=== PATIENT | male | born 1990 | race Caucasian/White ===

== ENCOUNTER → 2016-11-22 | Outpatient (CLI) | payer OTHER, BC ==
[~2016-11-22] MED LIST: ADAPALENE45 G1 TP; BACTRIM,SEPT1 TABLE1 PO; CATAPRES-TTS 11 EACH TD; CHILDREN'S100 MG/59 PO; ERYTHROMYCIN250 M1 GT; IRON GT; LAMICTAL200 MG GT; LAMICTAL200 MG PO; MIRALAX17 GM GT; MIRALAX17 GM PO; MYCOSTATIN 100,60 ML PO; NYSTATIN15 GM TP; PREVACID SOLUTA30 MG PO; PREVACID30 MG GT; PROBIOTIC ACID1 EAC1 GT; TRANSDERM-SCO1 PATCH TD; TYLENOL REGULA325 MG PO; VALIUM SOLUTI1 MG/ML GT; VIBRAMYCIN25 MG/5 ML GT; VIMPAT10 MG/1 ML GT; XOPENEX1.25 MG/3 IH; ZYRTEC10 M2 GT
== END | disposition home or self-care (01) ==
LOC: RAD 13:12 → EDSTATUS 13:30 → RAD 13:30
PROC: 0DH67UZ Insertion of Feeding Device into Stomach, Via Natural or Artificial Opening (ICD-10-PCS; principal; 2016-11-22)
DX: Z43.1 Encounter for attention to gastrostomy (principal)
CPT/HCPCS: C1766

== ENCOUNTER → 2017-02-22 | Outpatient (CLI) | payer OTHER, BC | END | disposition home or self-care (01) | LOC: EDSTATUS 13:30 → RAD 13:30 | PROC: 0DH67UZ Insertion of Feeding Device into Stomach, Via Natural or Artificial Opening (ICD-10-PCS; principal; 2017-02-22) | DX: G81.91 Hemiplegia, unspecified affecting right dominant side (principal); K94.20 Gastrostomy complication, unspecified | CPT/HCPCS: C1769 ==

== ENCOUNTER → 2017-06-04 | Outpatient (CLI) | payer OTHER, BC ==
[~2017-06-04] VITALS: Ht 185.4 cm; Wt 65.0 kg
== END | disposition home or self-care (01) ==
LOC: RAD 13:15 → EDSTATUS 13:30 → RAD 13:30
PROC: 0DH87UZ Insertion of Feeding Device into Small Intestine, Via Natural or Artificial Opening (ICD-10-PCS; principal; 2017-06-04)
DX: K94.20 Gastrostomy complication, unspecified (principal); G81.91 Hemiplegia, unspecified affecting right dominant side
CPT/HCPCS: C1769

== ENCOUNTER → 2017-08-14 | Outpatient (CLI) | payer OTHER, BC | END | disposition home or self-care (01) | LOC: RAD 14:00 | PROC: 0DHA7DZ Insertion of Intraluminal Device into Jejunum, Via Natural or Artificial Opening (ICD-10-PCS; principal; 2017-08-14) | DX: G82.50 Quadriplegia, unspecified (principal); K94.20 Gastrostomy complication, unspecified | CPT/HCPCS: C1769 ==

== ENCOUNTER → 2017-11-16 | Outpatient (CLI) | payer OTHER, BC | END | disposition home or self-care (01) | LOC: RAD 13:30 | PROC: 0DH87UZ Insertion of Feeding Device into Small Intestine, Via Natural or Artificial Opening (ICD-10-PCS; principal; 2017-11-16) | DX: K94.20 Gastrostomy complication, unspecified (principal) | CPT/HCPCS: C1769 ==

== ENCOUNTER → 2018-02-11 | Outpatient (CLI) | payer OTHER, BC | END | disposition home or self-care (01) | LOC: RAD 14:00 | PROC: 0DHA7DZ Insertion of Intraluminal Device into Jejunum, Via Natural or Artificial Opening (ICD-10-PCS; principal; 2018-02-11) | DX: G82.50 Quadriplegia, unspecified (principal) | CPT/HCPCS: C1769 ==

== ENCOUNTER 2018-03-31 20:48 | Observation (INO) | payer BC, OTHER ==
[~2018-03-31] VITALS: Ht 185.4 cm; Wt 76.0 kg
[2018-03-31 23:00] LABS: HEMATOCRIT 50.3 % (38.0-50.0); HEMOGLOBIN 17.2 G/DL (12.5-16.6); MCH 31.6 PG (29.0-34.0); MCHC 34.2 G/DL (30.0-36.0); MCV 92.3 FL (86-99); PLATELET COUNT 258 K/uL (156-360); RBC DIS.WIDTH-SD 43.6 % (39-53); RED BLOOD COUNT 5.45 M/uL (4.00-5.50); WHITE BLOOD COUNT 13.5 K/uL (4.1-10.2)
[2018-03-31 23:17] LABS: ALBUMIN 4.5 g/dL (3.2-4.8); CHLORIDE 97 mEq/L (99-109); POTASSIUM 4.3 mEq/L (3.7-5.4); SODIUM 137 mEq/L (136-147)
[2018-03-31 23:20] LABS: GLUCOSE 96 mg/dL (70-99); TOTAL PROTEIN 8.1 g/dL (6.4-8.3)
[2018-03-31 23:21] LABS: TOTAL BILIRUBIN 0.7 mg/dL (0.0-1.0)
[2018-03-31 23:23] LABS: ALKALINE PHOSPHATASE 179 IU/L (3-129); CREATININE 0.5 mg/dL (0.6-1.3); GFR ESTIMATE (CALCULATED) > 59 mL/min/ (58.99-99999)
[2018-03-31 23:24] LABS: UREA NITROGEN (BUN) 12 mg/dL (9-23)
[2018-03-31 23:25] LABS: AST (GOT) 30 IU/L (2-34)
[2018-03-31 23:26] LABS: ALT (GPT) 71 IU/L (3-49)
[2018-03-31 23:27] LABS: LIPASE 150 U/L (1.0-51.0)
[2018-04-01] MEDS ORDERED: HEMP OIL GT (01:17)
[2018-04-01] MEDS ORDERED: ZOFRAN4 MG PO (01:18)
[2018-04-01 05:13] VITALS: BP 114/74
[2018-04-01 11:20] VITALS: BP 100/72
[2018-04-01] MEDS ORDERED: MIRALAX17 GM PO (11:51)
[2018-04-01] MEDS ORDERED: MIRALAX17 GM GT (11:52)
[2018-04-01 14:18] LABS: HEMATOCRIT 52.9 % (38.0-50.0); HEMOGLOBIN 17.8 G/DL (12.5-16.6); MCH 31.3 PG (29.0-34.0); MCHC 33.6 G/DL (30.0-36.0); MCV 93.1 FL (86-99); PLATELET COUNT 181 K/uL (156-360); RBC DIS.WIDTH-CV 13.2 % (11.8-14.6); RBC DIS.WIDTH-SD 44.6 % (39-53); RED BLOOD COUNT 5.68 M/uL (4.00-5.50); WHITE BLOOD COUNT 8.4 K/uL (4.1-10.2)
[2018-04-01 15:22] VITALS: BP 107/64
[2018-04-01 15:31] LABS: POTASSIUM ND MEQ/L (3.7-5.4)
[2018-04-01 15:32] LABS: AST (GOT) ND IU/L (2-34)
[2018-04-01 15:49] LABS: ALBUMIN 4.1 G/DL (3.2-4.8); ALKALINE PHOSPHATASE 139 IU/L (3-129); ALT (GPT) 61 IU/L (3-49); CHLORIDE 105 MEQ/L (99-109); CREATININE 0.4 MG/DL (0.6-1.3); GFR ESTIMATE (CALCULATED) > 59 mL/min/ (58.99-99999); GLUCOSE 87 mg/dL (70-99); SODIUM 140 MEQ/L (136-147); TOTAL BILIRUBIN 0.7 MG/DL (0.0-1.0); TOTAL PROTEIN 7.3 G/DL (6.4-8.3); UREA NITROGEN (BUN) 12 mg/dL (9-23)
[2018-04-01 19:00] VITALS: BP 100/72
[2018-04-02 00:41] VITALS: BP 99/57
[2018-04-02 06:00] LABS: CHLORIDE 107 MEQ/L (99-109); CREATININE 0.5 MG/DL (0.6-1.3); GFR ESTIMATE (CALCULATED) > 59 mL/min/ (58.99-99999); POTASSIUM 4.1 MEQ/L (3.7-5.4); SODIUM 140 MEQ/L (136-147); UREA NITROGEN (BUN) 14 mg/dL (9-23)
[2018-04-02 06:02] LABS: GLUCOSE 109 mg/dL (70-99)
[2018-04-02 06:57] LABS: BASOPHIL (%) 0.9 % (0-1); BASOPHIL COUNT 0.1 K/uL (0-0.1); EOSINOPHIL (%) 1.7 % (0-5); EOSINOPHIL COUNT 0.1 K/uL (0-0.3); IMMATURE GRANULOCYTE (%) 0.3 % (0.0-0.7); LYMPHOCYTE (%) 37.7 % (15-42); LYMPHOCYTE COUNT 2.8 K/uL (1.0-2.8); MCH 30.7 PG (29.0-34.0); MCHC 32.7 G/DL (30.0-36.0); MONOCYTE (%) 6.1 % (3-12); MONOCYTE COUNT 0.5 K/uL (0-0.8); NEUTROPHIL (%) 53.3 % (45-76); PLATELET COUNT 176 K/uL (156-360); RBC DIS.WIDTH-CV 13.1 % (11.8-14.6); RBC DIS.WIDTH-SD 45.1 % (39-53); RED BLOOD COUNT 5.21 M/uL (4.00-5.50); WHITE BLOOD COUNT 7.5 K/uL (4.1-10.2)
[2018-04-02 07:22] VITALS: BP 97/67
== END 2018-04-02 10:45 | disposition home or self-care (01) ==
LOC: EME 20:48 → 4SOUTH 04-01 03:14 → EDOF 04-01 03:14 → ENRESERV 04-01 03:21 → 4SOUTH 04-01 04:43
PROVIDERS: Hospitalist; Physician Assistant
DX: K85.90 Acute pancreatitis without necrosis or infection, unspecified (principal); G80.9 Cerebral palsy, unspecified; G93.89 Other specified disorders of brain; Z74.01 Bed confinement status; Z98.2 Presence of cerebrospinal fluid drainage device; Z98.1 Arthrodesis status; Z93.1 Gastrostomy status; Z88.1 Allergy status to other antibiotic agents; Z91.040 Latex allergy status; Z91.048 Other nonmedicinal substance allergy status; Z88.8 Allergy status to other drugs, medicaments and biological substances
CPT/HCPCS: 70450; 74022; 74177; 76705; 80048; 80053; 81003; 83690; 85025; 85027; 94640; 94640 76; 99202; 99281; 99285; C9113; G0378; J2060; J2405; J7030

== ENCOUNTER → 2018-05-29 | Outpatient (CLI) | payer OTHER, BC ==
[~2018-05-29] MED LIST changes: +HEMP OIL GT; +ZOFRAN4 MG PO
== END | disposition home or self-care (01) ==
LOC: RAD 04-29 15:00
PROC: 0DH87UZ Insertion of Feeding Device into Small Intestine, Via Natural or Artificial Opening (ICD-10-PCS; principal; 2018-05-29)
DX: G82.50 Quadriplegia, unspecified (principal); K94.20 Gastrostomy complication, unspecified
CPT/HCPCS: C1769